=== PATIENT | male | born 1955 | race Caucasian/White ===

== ENCOUNTER 2022-11-29 12:53 | Emergency (ER) | payer MEDICARE, MEDICAID ==
[~2022-11-29] VITALS: Ht 177.8 cm; Wt 75.0 kg
[2022-11-29 12:58] VITALS: TEMP 98.6
--- NOTE | 2022-11-29 16:17 | NUR ---
PT PRESENTS TO THE ER WITH MEN'S SWIM COACH FOR MECHANICAL FALL AROUND 1130 TODAY. MEN[employer]S SWIM COACH REPORTS PATIENT TRIPPPED AND FELL DUE TO SHOES NOT BEING ON PROPERLY. PT ON ASPIRIN 81MG DAILY. PAIN 6/10 RIGHT HAND AND NOSE PAIN.
[2022-11-29 16:21] VITALS: BP 188/102; PULSE 71; O2SAT 99
[2022-11-29 16:26] VITALS: RESP 18
== END 2022-11-29 17:24 | disposition home or self-care (01) ==
LOC: ER 12:54
DX: S60.511A Abrasion of right hand, initial encounter (principal); S00.31XA Abrasion of nose, initial encounter; W19.XXXA Unspecified fall, initial encounter; Y93.89 Activity, other specified; Y92.89 Other specified places as the place of occurrence of the external cause; Y99.8 Other external cause status
CPT/HCPCS: 73130; 99284; A6258; A6449

== ENCOUNTER 2023-05-26 15:25 | Emergency (ER) | payer MEDICARE, MEDICAID ==
[~2023-05-26] VITALS: Ht 172.7 cm; Wt 68.2 kg
[2023-05-26 16:37] VITALS: BP 160/103; PULSE 91; RESP 17; TEMP 98.2; O2SAT 99
== END 2023-05-26 16:49 | disposition home or self-care (01) ==
LOC: ER 15:25
DX: S50.12XA Contusion of left forearm, initial encounter (principal); X58.XXXA Exposure to other specified factors, initial encounter; Y93.89 Activity, other specified; Y92.89 Other specified places as the place of occurrence of the external cause; Y99.8 Other external cause status
CPT/HCPCS: 29125; 73090; 99284; A6449

== ENCOUNTER 2023-06-12 20:05 | Emergency (ER) | payer MEDICARE, MEDICAID ==
[~2023-06-12] VITALS: Ht 177.8 cm; Wt 78.0 kg
[2023-06-12 20:10] VITALS: BP 163/92; TEMP 98
[2023-06-12 20:48] LABS: BASOPHILS % (AUTO) 0.6 % (0-1); EOSINOPHILS # (AUTO) 0.2 X10'3 (0-0.9); EOSINOPHILS % (AUTO) 2.6 % (0-6); HEMATOCRIT 28.3 % (42.0-52.0); HEMOGLOBIN 9.4 g/dl (14.0-17.9); LYMPHOCYTES # (AUTO) 1.1 X10'3 (1.1-4.8); LYMPHOCYTES % (AUTO) 15.3 % (21-51); MEAN CORPUSCULAR HEMOGLOBIN 30.5 PG (27.0-31.0); MEAN CORPUSCULAR HGB CONC 33.2 g/dL (33.0-36.5); MEAN CORPUSCULAR VOLUME 91.8 FL (78-98); MEAN PLATELET VOLUME 7.8 FL (7.4-10.4); MONOCYTES # (AUTO) 0.4 X10'3 (0-0.9); MONOCYTES % (AUTO) 5.3 % (2-12); NEUTROPHILS # (AUTO) 5.5 X10'3 (1.8-7.7); NEUTROPHILS % (AUTO) 76.2 % (42-75); PLATELET COUNT 212 X10'3 (140-440); RED BLOOD COUNT 3.08 X10'6 (4.70-6.10); RED CELL DISTRIBUTION WIDTH 13.7 % (11.5-14.5); WHITE BLOOD COUNT 7.3 X10'3 (4.5-11.0)
[2023-06-12 20:52] LABS: ALANINE AMINOTRANSFERASE 21 U/L (12-78); ALBUMIN 3.2 G/DL (3.4-5.0); ALBUMIN/GLOBULIN RATIO 0.9 (1.1-1.5); ALKALINE PHOSPHATASE 133 IU/L (46-116); ANION GAP 11 (8-16); ASPARTATE AMINO TRANSFERASE 14 U/L (10-37); BILIRUBIN,TOTAL 0.2 MG/DL (0.1-1.0); BLOOD UREA NITROGEN 42 MG/DL (7-18); BUN/CREATININE RATIO 15.9 (10.0-20.0); CALCIUM 8.9 MG/DL (8.5-10.1); CHLORIDE 103 MMOL/L (99-107); CREATININE 2.64 MG/DL (0.60-1.10); GLUCOSE 134 MG/DL (70-104); LIPASE 24 U/L (16-77); POTASSIUM 4.2 MMOL/L (3.5-5.1); SODIUM 140 MMOL/L (135-145); TOTAL CARBON DIOXIDE 26.4 MMOL/L (24-32); TOTAL PROTEIN 6.8 G/DL (6.4-8.2); eCRCL 28 ML/MIN; eGFR 24 ML/MIN
[2023-06-12 21:20] LABS: BILIRUBIN,URINE NEGATIVE (Neg); CLARITY,URINE CLEAR (Clear); COLOR,URINE STRAW (Yellow); GLUCOSE, URINE NEGATIVE (Neg); KETONES,URINE NEGATIVE (Neg); LEUKOCYTE ESTERASE ,URINE SMALL (Neg); NITRITES, URINE NEGATIVE (Neg); OCCULT BLOOD,URINE NEGATIVE (Neg); PH,URINE 6.5 (4.8-8.0); PROTEIN,URINE NEGATIVE (Neg); UROBILINOGEN,URINE 0.2 E.U/dL (0.2-1.0)
[2023-06-12 21:25] LABS: UA COLLECTION TYPE CLN CATCH MIDSTREAM
[2023-06-12 21:27] LABS: BACTERIA,URINE FEW /HPF (Neg); MUCUS STRANDS NONE SEEN /LPF (Neg); RBC,URINE 0-2 /HPF (0-2); SQUAMOUS EPITHELIAL CELL,UR FEW /LPF (FEW); WBC CLUMPS,URINE FEW /HPF (NEGATIVE)
[2023-06-12] MEDS ORDERED: FLO0.4C PO (23:06)
[2023-06-12] MEDS ORDERED: CEPH-585 PO (23:06)
[2023-06-12] MEDS: LidoCAINE 2% Topical Jelly 11mL syringe TOP ONE (23:18)
[2023-06-12] MEDS: tamsulosin 0.4mg capsule PO ONE (23:18)
[2023-06-12] MEDS: cephalexin 250mg capsule PO ONE (23:18)
[2023-06-12] MEDS: bisacodyl 5mg tablet.DR PO ONE (23:49)
[2023-06-12 23:53] VITALS: PULSE 78; RESP 16; O2SAT 98
== END 2023-06-12 23:54 | disposition home or self-care (01) ==
LOC: ER 20:07
DX: K59.00 Constipation, unspecified (principal); N39.0 Urinary tract infection, site not specified; R33.9 Retention of urine, unspecified; J44.9 Chronic obstructive pulmonary disease, unspecified; E11.9 Type 2 diabetes mellitus without complications; Z79.2 Long term (current) use of antibiotics; Z79.899 Other long term (current) drug therapy
CPT/HCPCS: 36415; 51702; 74176; 80053; 81001; 83690; 85025; 87088; 99284

== ENCOUNTER 2023-06-13 11:41 | Emergency (ER) | payer MEDICARE, MEDICAID ==
[~2023-06-13] VITALS: Ht 177.8 cm; Wt 76.8 kg
[~2023-06-13 11:41] MED LIST: CEPH-585 PO; FLO0.4C PO
[2023-06-13 13:19] LABS: BASOPHILS # (AUTO) 0.1 X10'3 (0-0.2); BASOPHILS % (AUTO) 0.4 % (0-1); EOSINOPHILS % (AUTO) 0.1 % (0-6); HEMATOCRIT 32.7 % (42.0-52.0); HEMOGLOBIN 10.9 g/dl (14.0-17.9); LYMPHOCYTES # (AUTO) 1.1 X10'3 (1.1-4.8); LYMPHOCYTES % (AUTO) 7.9 % (21-51); MEAN CORPUSCULAR HEMOGLOBIN 30.4 PG (27.0-31.0); MEAN CORPUSCULAR HGB CONC 33.3 g/dL (33.0-36.5); MEAN CORPUSCULAR VOLUME 91.4 FL (78-98); MONOCYTES # (AUTO) 0.6 X10'3 (0-0.9); MONOCYTES % (AUTO) 4.4 % (2-12); NEUTROPHILS # (AUTO) 11.8 X10'3 (1.8-7.7); NEUTROPHILS % (AUTO) 87.2 % (42-75); PLATELET COUNT 257 X10'3 (140-440); RED BLOOD COUNT 3.58 X10'6 (4.70-6.10); RED CELL DISTRIBUTION WIDTH 13.7 % (11.5-14.5); WHITE BLOOD COUNT 13.5 X10'3 (4.5-11.0)
[2023-06-13 13:28] LABS: PROTHROMBIN TIME 10.3 SECONDS (9.0-12.0)
[2023-06-13 15:49] VITALS: TEMP 98
[2023-06-13 18:37] LABS: CLARITY,URINE TURBID (Clear); COLOR,URINE RED (Yellow)
[2023-06-13 18:39] LABS: UA COLLECTION TYPE FOLEY CATH
[2023-06-13 18:42] LABS: SQUAMOUS EPITHELIAL CELL,UR NONE SEEN /LPF (FEW)
[2023-06-13 18:43] LABS: RBC,URINE TNTC /HPF (0-2); WBC,URINE 30-50 /HPF (0-4)
[2023-06-13 18:45] LABS: BACTERIA,URINE 2+ /HPF (Neg); WBC CLUMPS,URINE FEW /HPF (NEGATIVE)
[2023-06-13] MEDS: CefTRIAXone 1000mg IM Kit (w/lidocaine diluent) IM ONE (19:24)
[2023-06-13 19:33] VITALS: BP 136/86; PULSE 88; O2SAT 100
[2023-06-13 19:35] VITALS: RESP 20
== END 2023-06-13 19:38 | disposition home or self-care (01) ==
LOC: ER 11:42
DX: R31.9 Hematuria, unspecified (principal); N39.0 Urinary tract infection, site not specified; J44.9 Chronic obstructive pulmonary disease, unspecified; E11.9 Type 2 diabetes mellitus without complications; Z79.2 Long term (current) use of antibiotics; Z79.899 Other long term (current) drug therapy
CPT/HCPCS: 36415; 81001; 85025; 85610; 87088; 96372; 99284; J0696

== ENCOUNTER 2023-12-07 17:44 | Emergency (ER) | payer MEDICARE, MEDICAID ==
[~2023-12-07] VITALS: Ht 177.8 cm; Wt 80.0 kg
[~2023-12-07 17:44] MED LIST changes: +ASPI-1397 PO; +BENZ1TAB78 PO; +BUDE180A INH; -CEPH-585 PO; +DOCU-395 PO; +ESCI20TA39 PO; +FERR-97 PO; +HALO0.5T PO; +HALO10TA13 PO; +LISI10TA27 PO; +MELA1LIQ PO; +PSYL575P22; +SIMV-42 PO
[2023-12-07 18:43] LABS: BASOPHILS # (AUTO) 0.1 X10'3 (0-0.2); BASOPHILS % (AUTO) 0.5 % (0-1); EOSINOPHILS # (AUTO) 0.1 X10'3 (0-0.9); EOSINOPHILS % (AUTO) 0.9 % (0-6); HEMOGLOBIN 9.3 g/dl (14.0-17.9); LYMPHOCYTES # (AUTO) 1.1 X10'3 (1.1-4.8); LYMPHOCYTES % (AUTO) 10.1 % (21-51); MEAN CORPUSCULAR HEMOGLOBIN 29.9 PG (27.0-31.0); MEAN CORPUSCULAR HGB CONC 33.3 g/dL (33.0-36.5); MEAN CORPUSCULAR VOLUME 89.8 FL (78-98); MEAN PLATELET VOLUME 7.4 FL (7.4-10.4); MONOCYTES % (AUTO) 8.6 % (2-12); NEUTROPHILS # (AUTO) 9.1 X10'3 (1.8-7.7); NEUTROPHILS % (AUTO) 79.9 % (42-75); PLATELET COUNT 261 X10'3 (140-440); RED BLOOD COUNT 3.12 X10'6 (4.70-6.10); RED CELL DISTRIBUTION WIDTH 14.9 % (11.5-14.5); WHITE BLOOD COUNT 11.3 X10'3 (4.5-11.0)
[2023-12-07 18:52] LABS: ALANINE AMINOTRANSFERASE 20 U/L (12-78); ALBUMIN 2.6 G/DL (3.4-5.0); ALBUMIN/GLOBULIN RATIO 0.6 (1.1-1.5); ALKALINE PHOSPHATASE 117 IU/L (46-116); ANION GAP 7 (8-16); ASPARTATE AMINO TRANSFERASE 15 U/L (10-37); BILIRUBIN,TOTAL 0.2 MG/DL (0.1-1.0); BLOOD UREA NITROGEN 20 MG/DL (7-18); CALCIUM 8.8 MG/DL (8.5-10.1); CHLORIDE 100 MMOL/L (99-107); CREATININE 1.81 MG/DL (0.60-1.10); GLUCOSE 140 MG/DL (70-104); POTASSIUM 4.3 MMOL/L (3.5-5.1); SODIUM 131 MMOL/L (135-145); TOTAL CARBON DIOXIDE 23.6 MMOL/L (24-32); eCRCL 41 ML/MIN; eGFR 38 ML/MIN
[2023-12-07 19:00] LABS: BILIRUBIN,DIRECT 0.1 MG/DL (0-0.3); LIPASE 19 U/L (16-77); PRO BRAIN NATRIURETIC PEPTIDE 567 PG/ML (0-125)
[2023-12-07] MEDS: normal saline 1000ml 1,000 ML IV ONE (19:04)
[2023-12-07] MEDS: ondansetron 4mg rapidly disintigrating tab PO ONE (19:04)
[2023-12-07 19:19] LABS: BILIRUBIN,URINE NEGATIVE (Neg); CLARITY,URINE SLIGHTLY CLOUDY (Clear); COLOR,URINE STRAW (Yellow); GLUCOSE, URINE NEGATIVE (Neg); KETONES,URINE NEGATIVE (Neg); LEUKOCYTE ESTERASE ,URINE MODERATE (Neg); NITRITES, URINE NEGATIVE (Neg); OCCULT BLOOD,URINE TRACE-INTACT (Neg); PH,URINE 6.5 (4.8-8.0); PROTEIN,URINE NEGATIVE (Neg); UROBILINOGEN,URINE 0.2 E.U/dL (0.2-1.0)
[2023-12-07 19:31] LABS: UA COLLECTION TYPE URINAL
[2023-12-07 19:53] LABS: SQUAMOUS EPITHELIAL CELL,UR FEW /LPF (FEW)
[2023-12-07 19:54] LABS: BACTERIA,URINE 1+ /HPF (Neg); RBC,URINE 0-2 /HPF (0-2); WBC,URINE 50-100 /HPF (0-4)
[2023-12-07] MEDS: CefTRIAXone 2gm/D5W 50ml BAG 50 ML IV ONE (19:56)
[2023-12-07] MEDS ORDERED: FLO0.4C PO (19:59)
[2023-12-07] MEDS ORDERED: CEFU250T95 PO (19:59)
[2023-12-07 20:49] VITALS: BP 150/90; PULSE 85; RESP 18; TEMP 97.7; O2SAT 99
== END 2023-12-07 20:51 | disposition home or self-care (01) ==
LOC: ER 17:45
DX: N39.0 Urinary tract infection, site not specified (principal); R11.10 Vomiting, unspecified; R55 Syncope and collapse; J44.9 Chronic obstructive pulmonary disease, unspecified
CPT/HCPCS: 36415; 71045; 80048; 80076; 81001; 83690; 83880; 84484; 85025; 87088; 93005; 96361; 96365; 99285; J0696; J7030

== ENCOUNTER 2024-01-19 16:13 | Emergency (ER) | payer MEDICARE, MEDICAID ==
[~2024-01-19] VITALS: Ht 177.8 cm; Wt 81.2 kg
[2024-01-19 16:36] LABS: BILIRUBIN,URINE NEGATIVE (Neg); CLARITY,URINE CLOUDY (Clear); COLOR,URINE RED (Yellow); GLUCOSE, URINE 100 mg/dl (Neg); KETONES,URINE NEGATIVE (Neg); LEUKOCYTE ESTERASE ,URINE TRACE (Neg); NITRITES, URINE POSITIVE (Neg); OCCULT BLOOD,URINE LARGE (Neg); PROTEIN,URINE >=300 mg/dl (Neg)
[2024-01-19 16:40] LABS: UA COLLECTION TYPE CLN CATCH MIDSTREAM
[2024-01-19 16:54] LABS: BACTERIA,URINE FEW /HPF (Neg); RBC,URINE TNTC /HPF (0-2)
[2024-01-19 16:55] LABS: SQUAMOUS EPITHELIAL CELL,UR FEW /LPF (FEW)
[2024-01-19] MEDS ORDERED: CEFTRIAXONE 500 MG VIAL IM STA (17:37)
[2024-01-19] MEDS ORDERED: CEPH-585 PO (17:45)
[2024-01-19] MEDS: CefTRIAXone 1000mg IM Kit (w/lidocaine diluent) IM STA (17:53)
[2024-01-19 18:01] VITALS: BP 112/64; PULSE 60; RESP 16; TEMP 98.2; O2SAT 96
== END 2024-01-19 18:01 | disposition home or self-care (01) ==
LOC: ER 16:14
DX: N30.01 Acute cystitis with hematuria (principal); J44.9 Chronic obstructive pulmonary disease, unspecified; E11.9 Type 2 diabetes mellitus without complications; D64.9 Anemia, unspecified; Z79.82 Long term (current) use of aspirin; Z79.899 Other long term (current) drug therapy
CPT/HCPCS: 81001; 87088; 96372; 99283; J0696

== ENCOUNTER 2024-08-15 19:52 | Emergency (ER) | payer MEDICARE, MEDICAID ==
[~2024-08-15] VITALS: Ht 177.8 cm; Wt 82.6 kg
[~2024-08-15 19:52] MED LIST changes: -BUDE180A INH; +BUDE180A5 INH; -FLO0.4C PO; +TAMS-55 PO
[2024-08-15 19:56] VITALS: TEMP 98.2
--- NOTE | 2024-08-15 20:27 | RADIOLOGY REPORT ---
Procedure: DI ABDOMEN,SINGLE VIEW(KUB) [facility] Study Date and Requested Time: 08/15/2024 08:14 PM Technique: 2 views of the abdomen and pelvis available for evaluation. History: constipated Comparison: None Findings/ Impression: Nonspecific bowel gas pattern. No evidence of bowel obstruction or ileus. Moderate amount of fecal ma terial within the colon. No abnormal calcifications are noted. The visualized lung bases are clear. No evidence of acute bony abnormalities. Phleboliths are noted within the pelvis.
--- NOTE | 2024-08-15 23:07 | Physician Documentation ---
History of Present Illness ~ Chief Complaint: Constipation Stated Complaint: CONSTIPATION Time Seen by : 19:57 Primary Medical Doctor: [facility] Here for several days of constipation. Medication Reconciliation Allergies: Coded Allergies: No Known Allergies (Unverified , 06/13/23) Scheduled Aspirin (Aspirin EC), 1 TAB PO DAILY, (Reported) Benztropine Mesylate (Benztropine Mesylate), 1 TAB PO BID, (Reported) Budesonide (Pulmicort Flexhaler), 2 PUFFS INH BID, (Reported) Docusate Sodium (Docusate Sodium), 1 CAP PO BID, (Reported) Escitalopram Oxalate (Escitalopram Oxalate), 1 TAB PO DAILY, (Reported) Ferrous Sulfate (Feosol), 1 TAB PO TIDWM, (Reported) Haloperidol (Haloperidol), 0.5 MG PO every morning, (Reported) Haloperidol (Haloperidol), 1 TAB PO HS, (Reported) Lisinopril (Lisinopril), 1 TAB PO DAILY, (Reported) Melatonin (Melatonin), 2 MG PO HS, (Reported) Simvastatin* (Zocor*), 1 TAB PO HS, (Reported) Tamsulosin Hcl* (Flomax*), 1 CAP PO DAILY, (Reported) Miscellaneous Medications Psyllium Husk (with Sugar) (Metamucil Powder), (Reported) Past Medical History 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*, COPD, Anemia, Diabetes, *PSYCH* Past Surgical History: noncontributory Alcohol Use: None Drug Use: none Lives In: Home Review of Systems All Other Systems at this time: Reviewed and Negative Physical Exam Vital Signs: RN Vital Signs have been reviewed: Yes, Temperature: 98.2, Source: Oral, Heart Rate: 81, Respiratory Rate: 16, BP: 168/102, Pulse Oximetry: 98, Weight: 82.600 Oxygen Flow Rate: 0 Physical Exam HEENT: PERRL, moist oral mucosa, EOMI Pulmonary: No respiratory distress MSK: no deformity Skin: w/d/i, no rash Neuro: alert, nonfocal Psych: normal affect Progress Results/Orders Results/Orders Orders - STANFORD WARD MD Abdomen,Single View(Kub) (08/15/24 20:18) * Soap Suds Enema* (08/15/24 20:00) Completed Orders - STANFORD WARD MD Abdomen,Single View(Kub) (08/15/24 20:18) Vital Signs 08/15/24 19:56 Temp 98.2 Pulse 81 Resp 16 B/P (MAP) 168/102 Pulse Ox 98 O2 Flow Rate 0 Medical Decision Making Findings KUB = stool burden. Patient defecated in ER. Discharge with return precautions. Additional Comments Ddx = constipation, bowel obstruction, gastroenteritis Departure Disposition: HOME / SELF CARE / HOMELESS Impression: Primary Impression: Constipation Condition: Stable Discharge Instructions: Constipation, Adult Referrals: NO PRIMARY CARE PROVIDER (PCP) Education Educated: Patient Educated regarding: diagnosis, treatment, prognosis, need for follow up Signature Scribe Signature: . Attestation: . STANFORD WARD MD August 15, 2024 23:07
[2024-08-15 23:18] VITALS: BP 126/80; PULSE 80; RESP 18; O2SAT 99
== END 2024-08-15 23:26 | disposition home or self-care (01) ==
LOC: ER 19:53
DX: K59.00 Constipation, unspecified (principal); E11.9 Type 2 diabetes mellitus without complications; J44.9 Chronic obstructive pulmonary disease, unspecified; Z79.82 Long term (current) use of aspirin
CPT/HCPCS: 74018; 99283

== ENCOUNTER 2024-09-09 10:53 | Emergency (ER) | payer MEDICARE, MEDICAID ==
[~2024-09-09] VITALS: Ht 177.8 cm; Wt 85.0 kg
[2024-09-09 11:05] VITALS: TEMP 97.7
[2024-09-09 11:48] VITALS: BP 169/110; PULSE 78; RESP 15; O2SAT 99
[2024-09-09 12:09] LABS: BASOPHILS # (AUTO) 0.1 X10'3 (0-0.2); EOSINOPHILS # (AUTO) 0.3 X10'3 (0-0.9); EOSINOPHILS % (AUTO) 4.9 % (0-6); HEMATOCRIT 41.3 % (42.0-52.0); HEMOGLOBIN 14.2 g/dl (14.0-17.9); LYMPHOCYTES # (AUTO) 1.2 X10'3 (1.1-4.8); LYMPHOCYTES % (AUTO) 22.5 % (21-51); MEAN CORPUSCULAR HEMOGLOBIN 31.7 PG (27.0-31.0); MEAN CORPUSCULAR HGB CONC 34.2 g/dL (33.0-36.5); MEAN CORPUSCULAR VOLUME 92.7 FL (78-98); MEAN PLATELET VOLUME 7.6 FL (7.4-10.4); MONOCYTES # (AUTO) 0.4 X10'3 (0-0.9); MONOCYTES % (AUTO) 8.3 % (2-12); NEUTROPHILS # (AUTO) 3.4 X10'3 (1.8-7.7); NEUTROPHILS % (AUTO) 63.3 % (42-75); PLATELET COUNT 190 X10'3 (140-440); RED BLOOD COUNT 4.46 X10'6 (4.70-6.10); RED CELL DISTRIBUTION WIDTH 13.8 % (11.5-14.5); WHITE BLOOD COUNT 5.4 X10'3 (4.5-11.0)
[2024-09-09 12:25] LABS: BILIRUBIN,URINE NEGATIVE (Neg); CLARITY,URINE CLEAR (Clear); COLOR,URINE STRAW (Yellow); GLUCOSE, URINE NEGATIVE (Neg); KETONES,URINE NEGATIVE (Neg); LEUKOCYTE ESTERASE ,URINE NEGATIVE (Neg); NITRITES, URINE NEGATIVE (Neg); OCCULT BLOOD,URINE NEGATIVE (Neg); PROTEIN,URINE NEGATIVE (Neg); UROBILINOGEN,URINE 0.2 E.U/dL (0.2-1.0)
[2024-09-09 12:27] LABS: ALANINE AMINOTRANSFERASE 29 U/L (12-78); ALBUMIN 3.7 G/DL (3.4-5.0); ALBUMIN/GLOBULIN RATIO 1.2 (1.1-1.5); ALKALINE PHOSPHATASE 152 IU/L (46-116); ANION GAP 10 (8-16); ASPARTATE AMINO TRANSFERASE 18 U/L (10-37); BILIRUBIN,TOTAL 0.3 MG/DL (0.1-1.0); BLOOD UREA NITROGEN 15 MG/DL (7-18); BUN/CREATININE RATIO 9.7 (10.0-20.0); CALCIUM 8.9 MG/DL (8.5-10.1); CHLORIDE 105 MMOL/L (99-107); CREATININE 1.54 MG/DL (0.60-1.10); GLUCOSE 88 MG/DL (70-104); LIPASE 20 U/L (16-77); POTASSIUM 4.4 MMOL/L (3.5-5.1); SODIUM 142 MMOL/L (135-145); TOTAL CARBON DIOXIDE 27.2 MMOL/L (24-32); TOTAL PROTEIN 6.8 G/DL (6.4-8.2); eCRCL 48 ML/MIN; eGFR 45 ML/MIN
--- NOTE | 2024-09-09 12:27 | Physician Documentation ---
History of Present Illness Chief Complaint: Abdominal Pain Stated Complaint: GROIN PAIN Time Seen by MD: 11:55 Primary Medical Doctor: [facility] Mode of Arrival: EMS HPI This is a 69-year-old male with history of mild intellectual disability who presents with one day of right lower quadrant abdominal pain without fever, nausea, or vomiting. Patient reports that he does have an appendix. Patient reports that sitting up or rolling over makes the pain worse. Patient reports he is currently being treated for UTI. Medication Reconciliation Allergies: Coded Allergies: No Known Allergies (Unverified , 09/09/24) Scheduled Aspirin (Aspirin EC), 1 TAB PO DAILY, (Reported) Benztropine Mesylate (Benztropine Mesylate), 1 TAB PO BID, (Reported) Budesonide (Pulmicort Flexhaler), 2 PUFFS INH BID, (Reported) Docusate Sodium (Docusate Sodium), 1 CAP PO BID, (Reported) Escitalopram Oxalate (Escitalopram Oxalate), 1 TAB PO DAILY, (Reported) Ferrous Sulfate (Feosol), 1 TAB PO TIDWM, (Reported) Haloperidol (Haloperidol), 0.5 MG PO every morning, (Reported) Haloperidol (Haloperidol), 1 TAB PO HS, (Reported) Lisinopril (Lisinopril), 1 TAB PO DAILY, (Reported) Melatonin (Melatonin), 2 MG PO HS, (Reported) Simvastatin* (Zocor*), 1 TAB PO HS, (Reported) Tamsulosin Hcl* (Flomax*), 1 CAP PO DAILY, (Reported) Miscellaneous Medications Psyllium Husk (with Sugar) (Metamucil Powder), (Reported) Past Medical History 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 Physical Exam Vital Signs: Temperature: 97.7, Source: Oral, Heart Rate: 78, Respiratory Rate: 15, BP: 169/110, Pulse Oximetry: 99, Weight: 85.000 Oxygen Flow Rate: 0 Physical Exam VITALS: Reviewed and as above. GENERAL: Alert, nontoxic appearing, no apparent distress. RESPIRATORY: No increased work of breathing, no respiratory distress, speaking in full clear sentences CV: Regular rate and rhythm no murmur BACK: No CVA tenderness GI: Right lower quadrant tenderness to palpation, no rebound, voluntary guarding, no rigidity, soft, nondistended SKIN: Warm and dry, no ecchymosis to abdomen or flank Progress Results/Orders Results/Orders Orders - EMILIA HANKS SENIOR IT AUDITOR Acetaminophen Iv (09/09/24 12:25) Vital Signs 09/09/24 09/09/24 09/09/24 11:05 11:14 11:48 Temp 97.7 Pulse 74 78 Resp 15 15 B/P (MAP) 161/95 169/110 (129) Pulse Ox 98 99 O2 Flow Rate 0 0 Laboratory Tests Test 09/09/24 11:55 09/09/24 11:58 Urine Comment White Blood Count 5.4 Red Blood Count 4.46 L Hemoglobin 14.2 Hematocrit 41.3 L Mean Corpuscular Volume 92.7 Mean Corpuscular Hemoglobin 31.7 H Mean Corpuscular Hemoglobin Concent 34.2 Red Cell Distribution Width 13.8 Platelet Count 190 Mean Platelet Volume 7.6 Neutrophils (%) (Auto) 63.3 Lymphocytes (%) (Auto) 22.5 Monocytes (%) (Auto) 8.3 Eosinophils (%) (Auto) 4.9 Basophils (%) (Auto) 1.0 Neutrophils # (Auto) 3.4 Lymphocytes # (Auto) 1.2 Monocytes # (Auto) 0.4 Eosinophils # (Auto) 0.3 Basophils # (Auto) 0.1 CBC Comment Chemistry Comments EKG/XRAY/CT/US/VASC/MRI CT : Impression Exam: CT CT ABDOMEN PELVIS W/ IV CONTRAST History: RLQ abdominal pain COMPARISON: CT CT ABDOMEN PELVIS on DOS: 07/23/23, CT CT ABDOMEN PELVIS on DOS: 06/12/23 Technique: Multidetector spiral CT of the abdomen and pelvis was performed from lung bases to pubic symphysis. Intravenous contrast was administered during this examination. Portal venous imaging was obtained. Axial, coronal and sagittal multiplanar reformats were performed by the technologist on a separate workstation. Radiation Dose : Abdomen/Pelvis: CTDIvol 15 mGy, DLP 803 mGy*cm. CONTRAST: Type of contrast: Omni 300 Contrast injected: 100 mL Findings: Lung Bases: No acute or significant lung base finding. Normal heart size. No pleural or pericardial effusion. Liver: Left hepatic cyst. Gallbladder and biliary Tree: Unremarkable Spleen: Unremarkable Pancreas: The pancreas is normal in appearance without focal lesions or abnormal enhancement. Adrenal Glands: Unremarkable Kidneys: Bilateral renal cortical thinning and scarring. Moderate bilateral hydronephrosis and hydroureter. No obstructing calculus identified. Bladder: Unremarkable Bowel: The stomach is grossly normal in appearance. Small bowel and colon are normal in caliber and distribution. The appendix is not visualized; however, no secondary findings of acute appendicitis identified. Ascites: Absent Lymphadenopathy: No mesenteric, retroperitoneal or periportal lymphadenopathy. Abdominal wall and Mesentery: Likely postsurgical changes related to right inguinal hernia repair. Vasculature: The visualized abdominal aorta is normal in size and caliber. Abdominal and pelvic vessels demonstrate normal enhancement. Pelvic Organs: Prostate is enlarged. Musculoskeletal: No aggressive focal bony lesions, acute fractures or dislocation. IMPRESSION: 1. No acute abdominal or pelvic finding. Left hepatic cyst. Bilateral renal cortical thinning and scarring. 2. Moderate bilateral hydronephrosis and hydroureter. No obstructing ureteral calculus identified. Prostatomegaly. Consider bladder outlet obstruction. Clinical correlation and continued follow-up is recommended. Radiation optimization: All CT scans at this facility use at least one of these dose optimization techniques: Automated exposure control mA and/or kV adjustment per patient size (includes targeted exams where dose is matched to clinical indication) or iterative reconstruction. HS:Y Electronically Signed by:SAMAN BUSTAMANTE MD Date & Time: 09/09/241437 Dictated by: SAMAN BUSTAMANTE MD Dictation date and time: 09/09/241437 I have reviewed and agree with the radiology report. I have reviewed and interpreted the imaging as: Bladder distention and enlarged prostate, no intraperitoneal free air Medical Decision Making Findings This 69-year-old male with history of mild intellectual disability presented with right quadrant pain for the past day without fever, nausea, or vomiting. Physical exam demonstrated right lower quadrant tenderness to palpation in a CT was obtained, CT did not demonstrate any acute intra abdominal process though did demonstrate some bladder distention and enlarged prostate, I spoke with the patient's urologist who reports they are aware of patient and he has a outpatient CT ordered and follow up appointment with them to address and large prostate and frequent urinary retention. Patient reports he is able to urinate and has been observed multiple times going to the restroom by nursing staff to urinate. Urinalysis did not demonstrate evidence of urinary tract infection and lab work did not demonstrate evidence of infection or significant electrolyte or metabolic dysfunction. Patient responded well to pain medication reporting no other pain and wishing to go home after resolution of pain. Patient on re- examination benign physical exam without abdominal tenderness. Patient is hemodynamically stable and appropriate for outpatient follow up. Patient provided return to care precautions which she verbalized understanding of. Differential Dx:Considerations: Include: AAA, Angina/KS, Appendicitis, Bowel obstruction, Cholelithasis, Constipation, Diverticular disease, Gastritis/PUD, Gastroenteritis, Inflammatory BD, Pancreatitis, Testicular torsion, Urinary obstruction, Urinary tract infection, Urolithiasis Departure Time of Disposition: 15:50 Disposition: HOME / SELF CARE / HOMELESS Impression: Primary Impression: Right lower quadrant abdominal pain Condition: Improved Discharge Instructions: Abdominal Pain (Nonspecific) Additional Instructions: We are unable to determine what is causing your abdominal pain today, though it is reassuring your pain has decreased after the medicine we gave you, you will need to follow up with her primary care provider for further workup of your abdominal pain. There was some incidental findings on your CT scan, please follow up with your urologist as scheduled. Please follow up with your primary care provider in the next few days. Please return to the emergency department for any new or worsening concerning symptoms. Referrals: NO PRIMARY CARE PROVIDER (PCP) Education Educated: Patient Educated regarding: diagnosis, treatment, prognosis, need for follow up Signature Scribe Signature: No scribe Attestation: The note accurately reflects work and decisions made by me.DAV Jesus 09/09/24 21:17 EMILIA HANKS Sep 09, 2024 12:27
[2024-09-09] MEDS: acetaminophen 1,000mg/100ml IV 100 ML IV ONE (12:31)
[2024-09-09 12:32] LABS: UA COLLECTION TYPE VOIDED
[2024-09-09] MEDS ORDERED: iohexol 300mg/ml 100ml inj. ONE (13:28)
[2024-09-09] MEDS: normal saline 1000ML IV soln IVB ONE (13:47)
--- NOTE | 2024-09-09 14:40 | RADIOLOGY REPORT ---
Exam: CT CT ABDOMEN PELVIS W/ IV CONTRAST History: RLQ abdominal pain COMPARISON: CT CT ABDOMEN PELVIS on DOS: 07/23/23, CT CT ABDOMEN PELVIS on DOS: 06/12/23 Technique: Multidetector spiral CT of the abdomen and pelvis was performed from lung bases to pubic symphysis. Intravenous contrast was administered during this examination. Portal venous imaging was obtained. Axial, coronal and sagittal multiplanar reformats were performed by the technologist on a separate workstation. Radiation Dose : Abdomen/Pelvis: CTDIvol 15 mGy, DLP 803 mGy*cm. CONTRAST: Type of contrast: Omni 300 Contrast injected: 100 mL Findings: Lung Bases: No acute or significant lung base finding. Normal heart size. No pleural or pericardial effusion. Liver: Left hepatic cyst. Gallbladder and biliary Tree: Unremarkable Spleen: Unremarkable Pancreas: The pancreas is normal in appearance without focal lesions or abnormal enhancement. Adrenal Glands: Unremarkable Kidneys: Bilateral renal cortical thinning and scarring. Moderate bilateral hydronephrosis and hyd roureter. No obstructing calculus identified. Bladder: Unremarkable Bowel: The stomach is grossly normal in appearance. Small bowel and colon are normal in caliber and d istribution. The appendix is not visualized; however, no secondary findings of acute appendicitis miranda ntified. Ascites: Absent Lymphadenopathy: No mesenteric, retroperitoneal or periportal lymphadenopathy. Abdominal wall and Mesentery: Likely postsurgical changes related to right inguinal hernia repair. Vasculature: The visualized abdominal aorta is normal in size and caliber. Abdominal and pelvic vess els demonstrate normal enhancement. Pelvic Organs: Prostate is enlarged. Musculoskeletal: No aggressive focal bony lesions, acute fractures or dislocation. IMPRESSION: 1. No acute abdominal or pelvic finding. Left hepatic cyst. Bilateral renal cortical thinning and sca rring. 2. Moderate bilateral hydronephrosis and hydroureter. No obstructing ureteral calculus identified. P rostatomegaly. Consider bladder outlet obstruction. Clinical correlation and continued follow-up is recommended. Radiation optimization: All CT scans at this facility use at least one of these dose optimization yuli hniques: Automated exposure control mA and/or kV adjustment per patient size (includes targeted exams where dose is matched to clinical indication) or iterative reconstruction. HS:Y
== END 2024-09-09 16:10 | disposition home or self-care (01) ==
LOC: ER 10:54
DX: R10.31 Right lower quadrant pain (principal); E11.9 Type 2 diabetes mellitus without complications; J44.9 Chronic obstructive pulmonary disease, unspecified; Z79.82 Long term (current) use of aspirin
CPT/HCPCS: 36415; 74177; 80053; 81003; 83690; 85025; 96361; 96374; 99285; J0131; J7030; Q9967